=== PATIENT | male | born 1985 | race Caucasian/White ===

== ENCOUNTER 2017-02-09 10:40 | Emergency (ER) | payer SELFPAY ==
[2017-02-09] MEDS ORDERED: HYDROCODONE/ACETAMINOPHEN 5-325 MG TABLET PO ONE (12:33)
--- NOTE | 2017-02-09 12:34 | ER Document Report ---
ED General - General Chief Complaint: Rib Pain Stated Complaint: RIB PAIN Time Seen by Provider: 02/09/17 12:13 Mode of Arrival: Ambulatory Information source: Patient Notes: 32-year-old male presents with complaints of left anterior rib pain. Patient notes he was playing on the snow yesterday and fell forward. Patient actually has a video showing his injury. Patient admits to mediate pain consistent anterior chest wall tenderness TRAVEL OUTSIDE OF THE [place] IN LAST 30 DAYS: No - HPI Onset: Yesterday Onset/Duration: Sudden Quality of pain: Achy Severity: Mild Pain Level: 1 Associated symptoms: Body/muscle aches Exacerbated by: Deep breathing Relieved by: Denies Similar symptoms previously: No Recently seen / treated by doctor: No - Related Data Allergies/Adverse Reactions: No Known Allergies Allergy (Verified 02/09/17 10:46) Past Medical History - Social History Smoking Status: Current Every Day Smoker Cigarette use (# per day): Yes Chew tobacco use (# tins/day): No Smoking Education Provided: No Frequency of alcohol use: Occasional Drug Abuse: Marijuana Family History: Reviewed & Not Pertinent Patient has suicidal ideation: No Patient has homicidal ideation: No Pulmonary Medical History: Reports: Hx Bronchitis Renal/ Medical History: Denies: Hx Peritoneal Dialysis Past Surgical History: Reports: Hx Myringotomy - Pediatric - Immunizations Hx Diphtheria, Pertussis, Tetanus Vaccination: Yes - UTD Review of Systems - Review of Systems Notes: REVIEW OF SYSTEMS: CONSTITUTIONAL : Denies fever, chills, or sweats. Denies recent illness. EENT: Denies eye, ear, throat, or mouth pain or symptoms. Denies nasal or sinus congestion or discharge. Denies throat, tongue, or mouth swelling or difficulty swallowing. CARDIOVASCULAR: Denies chest pain. Denies palpitations or racing or irregular heart beat. Denies ankle edema. RESPIRATORY: Denies cough, cold, or chest congestion. Denies shortness of breath, difficulty breathing, or wheezing. GASTROINTESTINAL: Denies abdominal pain or distention. Denies nausea, vomiting , or diarrhea. Denies blood in vomitus, stools, or per rectum. Denies black, tarry stools. Denies constipation. GENITOURINARY: Denies difficulty urinating, painful urination, burning, frequency, blood in urine, or discharge. MUSCULOSKELETAL: D admits anterior rib pain. SKIN: Denies rash, lesions or sores. HEMATOLOGIC : Denies easy bruising or bleeding. LYMPHATIC: Denies swollen, enlarged glands. NEUROLOGICAL: Denies confusion or altered mental status. Denies passing out or loss of consciousness. Denies dizziness or lightheadedness. Denies headache. Denies weakness or paralysis or loss of use of either side. Denies problems with gait or speech. Denies sensory loss, numbness, or tingling. Denies seizures. PSYCHIATRIC: Denies anxiety or stress. Denies depression, suicidal ideation, or homicidal ideation. ALL OTHER SYSTEMS REVIEWED AND NEGATIVE. Dictation was performed using [employer] recognition software PHYSICAL EXAMINATION: GENERAL: Well-appearing, well-nourished and in no acute distress. HEAD: Atraumatic, normocephalic. EYES: Pupils equal round and reactive to light, extraocular movements intact, sclera anicteric, conjunctiva are normal. ENT: Nares patent, oropharynx clear without exudates. Moist mucous membranes. NECK: Normal range of motion, supple without lymphadenopathy LUNGS: Breath sounds clear to auscultation bilaterally and equal. No wheezes rales or rhonchi. Tenderness on palpation of the anterior ribs 4 5 HEART: Regular rate and rhythm without murmurs ABDOMEN: Soft, nontender, nondistended abdomen. No guarding, no rebound. No masses appreciated. Musculoskeletal: Normal range of motion, no pitting or edema. No cyanosis. NEUROLOGICAL: Cranial nerves grossly intact. Normal speech, normal gait. Normal sensory, motor exams PSYCH: Normal mood, normal affect. SKIN: Warm, Dry, normal turgor, no rashes or lesions noted. Physical Exam - Vital signs Vitals: Temp Pulse BP Pulse Ox 98.5 F 73 121/70 99 02/09/17 10:51 02/09/17 10:51 02/09/17 10:51 02/09/17 10:51 Course - Re-evaluation Re-evalutation: 02/09/17 12:34 Patient will be immediately sent for x-ray rib series vital signs otherwise stable 02/09/17 12:52 X-rays consistent with a left fifth anterior rib fracture, this would be consistent with patient's presentation, there is no pneumothorax noted, he will be given an incentive spirometer we have spoken about smoking cessation. Otherwise patient looks well. She will be given pain control Lidoderm patches After performing a Medical Screening Examination, I estimate there is LOW risk for INTRACRANIAL HEMORRHAGE, UNSTABLE SPINE FRACTURE, CENTRAL CORD SYNDROME, CAUDA EQUINA, THORACIC AORTIC DISSECTION, PNEUMOTHORAX, PERFORATED BOWEL, RUPTURED ABDOMINAL AORTIC ANEURYSM, ACUTE TENDON RUPTURE, COMPARTMENT SYNDROME, or OPEN FRACTURE, thus I consider the discharge disposition reasonable. Also, there is no evidence or peritonitis, sepsis, or toxicity. I have reevaluated this patient multiple times and no significant life threatening changes are noted. The patient and I have discussed the diagnosis and risks, and we agree with discharging home to follow-up with their primary doctor with the understanding that symptoms and presentations can change. We also discussed returning to the Emergency Department immediately if new or worsening symptoms occur. We have discussed the symptoms which are most concerning (e.g., bloody stool, fever, changing or worsening pain, vomiting) that necessitate immediate return. - Vital Signs Vital signs: Temp Pulse Resp BP Pulse Ox 98.5 F 73 18 121/70 99 02/09/17 10:51 02/09/17 10:51 02/09/17 12:09 02/09/17 10:51 02/09/17 10:51 - Diagnostic Test Radiology reviewed: Image reviewed, Reports reviewed - report given to the patient Discharge - Discharge Clinical Impression: left anterior 5th rib fracture Condition: Stable Disposition: HOME, SELF-CARE Instructions: Rib Injuries and Fractures ([facility]) Additional Instructions: Follow up with your physician tomorrow for further care or return to the ED IMMEDIATELY if symptoms worsen or new concerns occur. If you cannot afford to follow up with your primary care physician a list of low cost clinics have been provided at the end of your discharge papers as well. Prescriptions: Hydrocodone/Acetaminophen [[place] 5-325 mg Tablet] 1 tab PO Q6 #14 tablet Lidocaine [Lidoderm 5% (700 mg) Transdermal Patch] 1 patch TP DAILY #30 adh..patch
--- NOTE | 2017-02-09 12:47 | RADIOLOGY REPORT (SQ) ---
EXAM DESCRIPTION: RIBS LEFT W/PA CHEST COMPLETED DATE/TIME: 02/09/2017 12:28 pm REASON FOR STUDY: fall injury COMPARISON: Chest x-ray 02/18/2013 TECHNIQUE: Frontal view of the chest and additional views of the left ribs acquired. NUMBER OF VIEWS: Four views LIMITATIONS: None. FINDINGS: FRONTAL CXR: No pneumothorax. No pleural effusion. No atelectasis or infiltrates. RIBS: No displaced rib fracture seen. Minor irregularity is seen of the anterior 5th rib on the left , concerning for nondisplaced fracture. OTHER: No other significant finding. IMPRESSION: Minor irregularity anterior 5th rib on the left concerning for nondisplaced fracture. COMMENT: No pneumothorax. SITE OF TRAUMA/COMPLAINT MARKED/STAMP COMPLETED: No TECHNICAL DOCUMENTATION: JOB ID: [id number] [employer]- All Rights Reserved
[2017-02-09 12:55] VITALS: BP 119/82
== END 2017-02-09 12:57 | disposition home or self-care (01) ==
LOC: ER 10:40
DX: S22.32XA Fracture of one rib, left side, initial encounter for closed fracture (principal); R07.81 Pleurodynia; W19.XXXA Unspecified fall, initial encounter; F17.210 Nicotine dependence, cigarettes, uncomplicated
CPT/HCPCS: 99283

== ENCOUNTER 2017-02-15 16:44 | Emergency (ER) | payer SELFPAY ==
--- NOTE | 2017-02-15 19:52 | ER Document Report ---
ED Medical Screen (RME) - General Chief Complaint: Rib Pain Stated Complaint: RIB PAIN Time Seen by Provider: 02/15/17 19:49 Mode of Arrival: Ambulatory Information source: Patient Notes: 32-year-old male presents to ED for left rib pain. He states he was seen in the emergency room last Sunday and was diagnosed with a left fifth rib fracture. He states he was coughing a lot last night and the whole left side of his chest started hurting much worse today. Patient smokes a half pack a day. He states he was put on [place] for his rib fracture. He states it is too painful for him to take a deep breath at this time. Lungs are diminished bilaterally. I have greeted and performed a rapid initial assessment of this patient. A comprehensive ED assessment and evaluation of the patient, analysis of test results and completion of medical decision making process will be conducted by an additional ED providers. TRAVEL OUTSIDE OF THE [place] IN LAST 30 DAYS: No - Related Data Allergies/Adverse Reactions: No Known Allergies Allergy (Verified 02/15/17 16:44) Past Medical History Pulmonary Medical History: Reports: Hx Bronchitis Renal/ Medical History: Denies: Hx Peritoneal Dialysis Past Surgical History: Reports: Hx Myringotomy - Pediatric - Immunizations Hx Diphtheria, Pertussis, Tetanus Vaccination: Yes - UTD Physical Exam - Vital signs Vitals: Temp Pulse Resp BP Pulse Ox 98.0 F 86 16 126/77 H 96 02/15/17 16:48 02/15/17 16:48 02/15/17 16:48 02/15/17 16:48 02/15/17 16:48 Course - Vital Signs Vital signs: Temp Pulse Resp BP Pulse Ox 98.0 F 86 16 126/77 H 96 02/15/17 16:48 02/15/17 16:48 02/15/17 16:48 02/15/17 16:48 02/15/17 16:48
--- NOTE | 2017-02-15 20:08 | RADIOLOGY REPORT (SQ) ---
EXAM DESCRIPTION: RIBS LEFT W/PA CHEST COMPLETED DATE/TIME: 02/15/2017 8:00 pm REASON FOR STUDY: cough increase in pain states has fx 5th rib COMPARISON: 02/09/2017 TECHNIQUE: Frontal view of the chest and additional views of the left ribs acquired. NUMBER OF VIEWS: Four view. LIMITATIONS: None. FINDINGS: FRONTAL CXR: No pneumothorax. No pleural effusion. No atelectasis or infiltrates. RIBS: Persistent nondisplaced fracture of the 5th lateral left rib. OTHER: No other significant finding. IMPRESSION: No pneumothorax. Persistent fracture of the left 5th rib without change. COMMENT: SITE OF TRAUMA/COMPLAINT MARKED/STAMP COMPLETED: Yes TECHNICAL DOCUMENTATION: JOB ID: [id number] [employer]- All Rights Reserved
--- NOTE | 2017-02-15 22:35 | ER Document Report ---
ED General - General Mode of Arrival: Ambulatory Information source: Patient TRAVEL OUTSIDE OF THE [place] IN LAST 30 DAYS: No - General Chief Complaint: Rib Pain Stated Complaint: RIB PAIN Time Seen by Provider: 02/15/17 19:49 Notes: Patient is a 32-year-old male who presents to the emergency department today with complaints of left-sided chest wall pain. Patient fell recently on ice and was diagnosed with a rib fracture. Patient states since being diagnosed with this he has developed a cough and nasal congestion. Patient states he is here for the cough and also needing some pain relief. (ESTEFANI GODWIN) - Related Data Allergies/Adverse Reactions: No Known Allergies Allergy (Verified 02/15/17 16:44) Past Medical History - General Information source: Patient - Social History Smoking Status: Current Every Day Smoker Cigarette use (# per day): Yes Frequency of alcohol use: None Drug Abuse: None Lives with: Family Family History: Reviewed & Not Pertinent Patient has suicidal ideation: No Patient has homicidal ideation: No Pulmonary Medical History: Reports: Hx Bronchitis Past Surgical History: Reports: Hx Myringotomy - Pediatric - Immunizations Hx Diphtheria, Pertussis, Tetanus Vaccination: Yes - UTD Review of Systems - Review of Systems Constitutional: No symptoms reported EENT: See HPI, Nose congestion Cardiovascular: No symptoms reported Respiratory: See HPI, Cough, Other - Rib pain, recent fracture Gastrointestinal: No symptoms reported Genitourinary: No symptoms reported Male Genitourinary: No symptoms reported Musculoskeletal: No symptoms reported Skin: No symptoms reported Hematologic/Lymphatic: No symptoms reported Neurological/Psychological: No symptoms reported -: Yes All other systems reviewed and negative Physical Exam - Vital signs Vitals: Temp Pulse Resp BP Pulse Ox 98.0 F 86 16 126/77 H 96 02/15/17 16:48 02/15/17 16:48 02/15/17 16:48 02/15/17 16:48 02/15/17 16:48 - Notes Notes: Physical Exam: General: Alert, appears well. HEENT: Normocephalic. Atraumatic. PERRL. Extraocular movements intact. Oropharynx clear. Neck: Supple. Non-tender. Respiratory: No respiratory distress. Clear and equal breath sounds bilaterally , no wheezing, rales, or rhonchi. Left lateral chest wall tenderness to palpation. Cardiovascular: Regular rate and rhythm. Abdominal: Obese. Non-tender. No distension. Normal Bowel Sounds. Back: No deformity or step off. Trapezius and scapular musculature tenderness to the patient Extremities: Moves all four extremities. Upper extremities: Normal inspection. Normal ROM. Lower extremities: Normal inspection. No edema. Normal ROM. Neurological: Normal cognition. AAOx4. Normal speech. Psychological: Normal affect. Normal Mood. Skin: Warm. Dry. Normal color. (ESTEFANI GODWIN) Course - Re-evaluation Re-evalutation: 02/15 Patient is a 32-year-old male with recent rib fracture who comes in complaining of pain. Patient has been splinting due to pain. He is out of pain medication. Reproducible tenderness to palpation. No evidence for pneumonia but patient is developing a cough. Will be started on azithromycin and given medication for pain control. Stable for discharge. Return if any worsening or concerning symptoms. Continue to use incentive spirometer at home. (JACOBO SERNA) - Vital Signs Vital signs: Temp Pulse Resp BP Pulse Ox 98.6 F 74 16 130/88 H 96 02/15/17 23:55 02/15/17 23:55 02/15/17 19:50 02/15/17 23:55 02/15/17 23:55 Discharge - Discharge Clinical Impression: Chest wall pain, Cough Rib fracture Qualifiers: Encounter type: initial encounter Rib fracture type: single rib Fracture type: closed Laterality: left Qualified Code(s): S22.32XA - Fracture of one rib, left side, initial encounter for closed fracture Condition: Stable Disposition: HOME, SELF-CARE Instructions: Chest Wall Pain ([facility]), Rib Injuries and Fractures ([facility]) Prescriptions: Azithromycin [Zithromax 250 mg Tablet] 250 mg PO ASDIR PRN #6 tablet PRN Reason: Carisoprodol [Soma] 350 mg PO BIDP PRN #10 tablet PRN Reason: Oxycodone HCl/Acetaminophen [Percocet 5-325 mg Tablet] 1 - 2 tab PO Q4H PRN #15 tablet PRN Reason: Forms: Return to Work Scribe Attestation: 02/16/17 03:52 I personally performed the services described in the documentation, reviewed and edited the documentation which was dictated to the scribe in my presence, and it accurately records my words and actions. (JACOBO SERNA) Scribe Documentation - Scribe Written by Scribe:: Lanny Tan, 02/16/2017 0106 acting as scribe for :: Iris
[2017-02-15] MEDS ORDERED: CARISOPRODOL 350 MG TABLET PO ONE (23:00)
[2017-02-15] MEDS ORDERED: LIDOCAINE 5% (700 MG) TRANSDERMAL ADH..PATCH TP ONE (23:00)
[2017-02-15] MEDS ORDERED: KETOROLAC TROMETHAMINE 60 MG/2 ML SDV IM ONE (23:00)
[2017-02-15] MEDS ORDERED: AZITHROMYCIN 250 MG TABLET PO ONE (23:00)
[2017-02-15] MEDS ORDERED: HYDROCODONE/ACETAMINOPHEN 5-325 MG (6 TAB/ER DISP) PO PRN (23:37)
[2017-02-15 23:56] VITALS: BP 130/88
== END 2017-02-15 23:56 | disposition home or self-care (01) ==
LOC: ER 16:44
DX: R07.81 Pleurodynia (principal); R05 Cough; R09.81 Nasal congestion; S22.32XA Fracture of one rib, left side, initial encounter for closed fracture; X58.XXXA Exposure to other specified factors, initial encounter; F17.210 Nicotine dependence, cigarettes, uncomplicated
CPT/HCPCS: 99283; 96372; 71101; J3490; J1885

== ENCOUNTER 2017-05-27 16:37 | Emergency (ER) | payer BC ==
[2017-05-27 16:43] VITALS: BP 110/67
[2017-05-27] MEDS ORDERED: FENTANYL CITRATE INJ/PF 100 MCG/2 ML AMPUL IV ONE (17:27)
[2017-05-27] MEDS ORDERED: ONDANSETRON 4 MG TAB.RAPDIS PO ONE (17:27)
--- NOTE | 2017-05-27 17:29 | ER Document Report ---
ED Medical Screen (RME) - General Chief Complaint: Flank Pain Stated Complaint: LOWER BACK PAIN Time Seen by Provider: 05/27/17 17:22 Notes: RME DISCLOSURE I have seen this patient as part of a Rapid Medical Evaluation and, if applicable, placed any initially appropriate orders. The patient will be seen and fully evaluated, including a full history and physical exam, by a provider ( in Main ED or Fast Track) when a room becomes available. 32-year-old male here with complaints of left-sided back flank pain radiating forward to the abdomen as well as difficulty urinating that started earlier today. He is still able to urinate however he is not able to excrete the volume he normally does. He has no dysuria or hematuria. He has some nausea but no vomiting or diarrhea. He has not tried taking anything for the symptoms. He has no prior history of kidney stones. TRAVEL OUTSIDE OF THE [place] IN LAST 30 DAYS: No - Related Data Allergies/Adverse Reactions: No Known Allergies Allergy (Verified 05/27/17 16:38) Past Medical History - Social History Chew tobacco use (# tins/day): No Frequency of alcohol use: Rare Drug Abuse: Marijuana Pulmonary Medical History: Reports: Hx Bronchitis Renal/ Medical History: Denies: Hx Peritoneal Dialysis Past Surgical History: Reports: Hx Myringotomy - Pediatric, Hx Tonsillectomy - Immunizations Hx Diphtheria, Pertussis, Tetanus Vaccination: Yes - UTD Physical Exam - Vital signs Vitals: Temp Pulse Resp BP Pulse Ox 97.6 F 64 20 110/67 99 05/27/17 16:42 05/27/17 16:42 05/27/17 16:42 05/27/17 16:42 05/27/17 16:42 Course - Vital Signs Vital signs: Temp Pulse Resp BP Pulse Ox 97.6 F 64 20 110/67 99 05/27/17 16:42 05/27/17 16:42 05/27/17 16:42 05/27/17 16:42 05/27/17 16:42
[2017-05-27 18:08] LABS: ABSOLUTE BASOPHILS # (AUTO) 0.1 10^3/uL (0.0-0.2); ABSOLUTE EOSINOPHILS # (AUTO) 0.2 10^3/uL (0.0-0.6); ABSOLUTE LYMPHOCYTES (AUTO) 2.2 10^3/uL (0.5-4.7); ABSOLUTE MONOCYTES (AUTO) 0.7 10^3/uL (0.1-1.4); ABSOLUTE NEUT (AUTO) 6.9 10^3/uL (1.7-8.2); BASOPHILS % (AUTO) 0.7 % (0-2); EOSINOPHILS % (AUTO) 1.8 % (0-6); HEMATOCRIT 47.5 % (37.9-51.0); HEMOGLOBIN 16.1 g/dL (13.5-17.0); LYMPHOCYTES % (AUTO) 21.6 % (13-45); MEAN CORPUSCULAR HEMOGLOBIN 29.4 pg (27.0-33.4); MEAN CORPUSCULAR HGB CONC 33.9 g/dL (32.0-36.0); MEAN CORPUSCULAR VOLUME 87 fl (80-97); MONOCYTES % (AUTO) 7.2 % (3-13); PLATELET COUNT 234 10^3/uL (150-450); RED BLOOD COUNT 5.46 10^6/uL (4.35-5.55); SEGMENTED NEUTROPHILS % (AUTO) 68.7 % (42-78); TOTAL CELLS COUNTED % (AUTO) 100 %; WHITE BLOOD COUNT 10.1 10^3/uL (4.0-10.5)
[2017-05-27 18:15] LABS: AMORPHOUS SEDIMENT,URINE TRACE /HPF; APPEARANCE,URINE SLIGHTLY-CLOUDY; BILIRUBIN,URINE NEGATIVE (NEGATIVE); COLOR,URINE YELLOW; GLUCOSE, URINE NEGATIVE (NEGATIVE); KETONES,URINE NEGATIVE (NEGATIVE); LEUKOCYTE ESTERASE,URINE NEGATIVE (NEGATIVE); NITRITE,URINE NEGATIVE (NEGATIVE); PROTEIN,URINE 30 mg/dL (NEGATIVE); URINE SPECIFIC GRAVITY 1.026
[2017-05-27 18:31] LABS: ALANINE AMINOTRANSFERASE 68 U/L (21-72); ALBUMIN 4.7 g/dL (3.5-5.0); ALKALINE PHOSPHATASE 69 U/L (38-126); ANION GAP 11 (5-19); ASPARTATE AMINO TRANSFERASE 35 U/L (17-59); BILIRUBIN,DIRECT 0.3 mg/dL (0.0-0.4); BILIRUBIN,TOTAL 0.5 mg/dL (0.2-1.3); BLOOD UREA NITROGEN 14 mg/dL (7-20); CALCIUM 10.3 mg/dL (8.4-10.2); CARBON DIOXIDE 30 mmol/L (22-30); CHLORIDE 104 mmol/L (98-107); GLUCOSE 90 mg/dL (75-110); POTASSIUM 4.5 mmol/L (3.6-5.0); SODIUM 145.2 mmol/L (137-145); TOTAL PROTEIN 7.2 g/dL (6.3-8.2)
--- NOTE | 2017-05-27 18:31 | RADIOLOGY REPORT (SQ) ---
EXAM DESCRIPTION: CT LTD RENAL STONE PROTOCOL ON COMPLETED DATE/TIME: 05/27/2017 6:10 pm REASON FOR STUDY: L back flank and abd pain; eval stone COMPARISON: None. TECHNIQUE: CT scan of the abdomen and pelvis performed without intravenous or oral contrast. Images reviewed with lung, soft tissue, and bone windows. Reconstructed coronal and sagittal MPR images revi ewed. All images stored on PACS. All CT scanners at this facility use dose modulation, iterative reconstruction, and/or weight based d osing when appropriate to reduce radiation dose to as low as reasonably achievable (ALARA). [facility]: Dose Right [facility]: CareDose [facility]: Dose Right [facility]: Teradose 4D [facility]: Smart [place] RADIATION DOSE: CT Rad equipment meets quality standard of care and radiation dose reduction techniq ues were employed. CTDIvol: 18.2 mGy. DLP: 1085 mGy-cm.mGy. LIMITATIONS: None. FINDINGS: LOWER CHEST: No significant findings. No nodules or infiltrates. NON-CONTRASTED LIVER, SPLEEN, ADRENALS: Evaluation limited by lack of IV contrast. No identified sign ificant masses. PANCREAS: No masses. No peripancreatic inflammatory changes. GALLBLADDER: No identified stones by CT criteria. No inflammatory changes to suggest cholecystitis. RIGHT KIDNEY AND URETER: No suspicious masses. Assessment limited by lack of IV contrast. No signif icant calcifications. No hydronephrosis or hydroureter. LEFT KIDNEY AND URETER: No suspicious masses. Assessment limited by lack of IV contrast. 2 mm calci fied stone at the left UVJ with mild hydronephrosis - hydroureter. Additional 3 mm calcified stone i n a lower pole calyx. AORTA AND RETROPERITONEUM: No aneurysm. No retroperitoneal masses or adenopathy. BOWEL AND PERITONEAL CAVITY: No obvious masses or inflammatory changes. No free fluid. APPENDIX: Normal. PELVIS, BLADDER, AND ABDOMINAL WALL:No abnormal masses. No free fluid. Bladder normal. BONES: No significant findings. OTHER: No other significant finding. IMPRESSION: 2 mm calcified stone at the left UVJ with mild hydronephrosis - hydroureter. COMMENT: Quality ID # [id number]: Final reports with documentation of one or more dose reduction techniques (e.g., Automated exposure control, adjustment of the mA and/or kV according to patient size, use of iterative reconstruction technique) TECHNICAL DOCUMENTATION: JOB ID: [id number] [place]-72 2010 [employer]- All Rights Reserved Reading location - IP/workstation name: [email or web address]
[2017-05-27] MEDS ORDERED: NORMAL SALINE 1000 ML 1,000 ML IV ONE (19:03)
[2017-05-27] MEDS ORDERED: KETOROLAC TROMETHAMINE INJ/PF 30 MG/1 ML SDV IV ONE (19:04)
[2017-05-27] MEDS ORDERED: TAMSULOSIN HCL 0.4 MG CAP.SR.24H PO ONE (19:04)
--- NOTE | 2017-05-27 19:05 | ER Document Report ---
ED GI/ - General Chief Complaint: Flank Pain Stated Complaint: LOWER BACK PAIN Time Seen by Provider: 05/27/17 17:22 Mode of Arrival: Ambulatory Information source: Patient Notes: 32-year-old male presents to ED for complaint of left-sided flank pain radiating to the abdomen. States he had some difficulty urinating earlier today but is able to carry urinate with no problems now. He states he did not see any blood in his urine but he has had some nausea with no vomiting. TRAVEL OUTSIDE OF THE [place] IN LAST 30 DAYS: No - HPI Patient complains to provider of: Flank pain Onset: This morning Timing/Duration: Intermittent Quality of pain: Cramping, Dull Severity at maximum: Severe Severity in ED: Moderate Pain Level: 2 Location: Left flank Associated symptoms: Nausea, Other - Flank pain. denies: Vomiting Exacerbated by: Denies Relieved by: Denies Similar symptoms previously: No Recently seen / treated by doctor: No - Related Data Allergies/Adverse Reactions: No Known Allergies Allergy (Verified 05/27/17 16:38) Past Medical History - General Information source: Patient - Social History Smoking Status: Current Every Day Smoker Cigarette use (# per day): Yes - 1/2 ppd Chew tobacco use (# tins/day): No Smoking Education Provided: Yes - 4 min Frequency of alcohol use: Rare Drug Abuse: Marijuana Occupation: [employer] Family History: Reviewed & Not Pertinent Patient has suicidal ideation: No Patient has homicidal ideation: No - Past Medical History Cardiac Medical History: Reports: None Pulmonary Medical History: Reports: Hx Bronchitis EENT Medical History: Reports: None Neurological Medical History: Reports: None Endocrine Medical History: Reports: None Renal/ Medical History: Reports: Hx Kidney Stones Malignancy Medical History: Reports None GI Medical History: Reports: None Musculoskeltal Medical History: Reports Hx Musculoskeletal Trauma Skin Medical History: Reports None Psychiatric Medical History: Reports: None Traumatic Medical History: Reports: Hx Fractures - rib Infectious Medical History: Reports: None Past Surgical History: Reports: Hx Myringotomy - Pediatric 6 ear surgeries, Hx Tonsillectomy - Immunizations Hx Diphtheria, Pertussis, Tetanus Vaccination: Yes - UTD Review of Systems - Review of Systems Constitutional: No symptoms reported EENT: No symptoms reported Cardiovascular: No symptoms reported Respiratory: No symptoms reported Gastrointestinal: Nausea Genitourinary: Flank pain Male Genitourinary: No symptoms reported Musculoskeletal: No symptoms reported Skin: No symptoms reported Hematologic/Lymphatic: No symptoms reported Neurological/Psychological: No symptoms reported -: Yes All other systems reviewed and negative Physical Exam - Vital signs Vitals: Temp Pulse Resp BP Pulse Ox 97.6 F 64 20 110/67 99 05/27/17 16:42 05/27/17 16:42 05/27/17 16:42 05/27/17 16:42 05/27/17 16:42 Interpretation: Normal - General General appearance: Appears well, Alert - HEENT Head: Normocephalic, Atraumatic Eyes: Normal Pupils: PERRL - Respiratory Respiratory status: No respiratory distress Chest status: Nontender Breath sounds: Normal Chest palpation: Normal - Cardiovascular Rhythm: Regular Heart sounds: Normal auscultation Murmur: No - Abdominal Inspection: Normal Distension: No distension Bowel sounds: Normal Tenderness: Tender - Left flank pain Organomegaly: No organomegaly - Back Back: Normal, CVA tenderness - Left - Extremities General upper extremity: Normal inspection, Nontender, Normal color, Normal ROM , Normal temperature General lower extremity: Normal inspection, Nontender, Normal color, Normal ROM , Normal temperature, Normal weight bearing. No: Elian's sign - Neurological Neuro grossly intact: Yes Cognition: Normal Orientation: AAOx4 [place] Coma Scale Eye Opening: Spontaneous [place] Coma Scale Verbal: Oriented [place] Coma Scale Motor: Obeys Commands [place] Coma Scale Total: 15 Speech: Normal Motor strength normal: LUE, RUE, LLE, RLE Sensory: Normal - Psychological Associated symptoms: Normal affect, Normal mood - Skin Skin Temperature: Warm Skin Moisture: Dry Skin Color: Normal Course - Re-evaluation Re-evalutation: 05/27/17 19:22 Patient was treated with Zofran, fentanyl, Toradol, Flomax, and IV fluids for his 2 mm UVJ stone on the left. Patient will be discharged home with prescription for Flomax and a urine strainer. Patient to follow-up with urology and primary md - Vital Signs Vital signs: Temp Pulse Resp BP Pulse Ox 97.6 F 64 20 110/67 99 05/27/17 16:42 05/27/17 16:42 05/27/17 16:42 05/27/17 16:42 05/27/17 16:42 - Laboratory Result Diagrams: 05/27/17 17:45 05/27/17 17:45 Laboratory results interpreted by me: 05/27/17 05/27/17 17:45 17:45 Sodium 145.2 H Calcium 10.3 H Urine Protein 30 H Urine Blood LARGE H Urine Urobilinogen 2.0 H - Diagnostic Test Radiology reviewed: Image reviewed, Reports reviewed Discharge - Discharge Clinical Impression: Ureterolithiasis Condition: Stable Disposition: HOME, SELF-CARE Instructions: Family Physicians / Practices Additional Instructions: KIDNEY STONE: You are passing or have passed a kidney stone. These stones are usually due to increased calcium or uric acid concentrations in your urine. Stones within the kidney itself are not painful. The pain occurs as the stone leaves the kidney to pass down the long tube, called the ureter, leading to the bladder. If the stone is small, it will usually pass by itself. Most patients can pass the stone at home. You will usually receive medications for pain, nausea or vomiting, and sometimes a medication to assist in passing the kidney stone. However, if the pain is very severe or if vomiting prevents you from taking oral pain medications, you may need to return for further treatment. Drink three or four quarts of fluids per day. You will be given pain medication (if needed) and urine strainers. Strain all your urine to see if the stone passes. If your doctor has asked you to bring the stone in for analysis, return with the stone once it has passed. Return if pain or vomiting become severe, if you develop a high fever, if you are unable to pass your urine, or if other unusual symptoms occur. TORADOL INJECTION: You have been given an injection of ketorolac tromethamine (Toradol). This is an excellent, safe drug for pain control. It also has potent antiinflammatory action. You should have significant pain relief within about one hour. Toradol is not addicting and is non-sedating. It does not interfere with driving or work. Call or return if you develop itching, hives, shortness of breath, or rash. PAIN MEDICATION INJECTION: You have received an injection of a pain medication. You should experience significant pain relief within 45 minutes. This drug is a narcotic - - it will impair your judgement, slow your reaction time and make you sleepy ( as well as relieve your pain). Narcotics also can cause nausea. You should not drive, work with machinery, or perform any task requiring mental alertness until all effects of the medication are gone -- six to eight hours. Do not take any alcohol, or sedatives, and do not take any other medication without checking with your physician. AN[place] MEDICATION: You have been given a medication to suppress nausea and vomiting. This type of medication can be given as a shot, pill, or suppository. It will usually last for many hours. Pills and shots usually last six to eight hours, suppositories last about 12 hours. For the typical illness, only one or two doses of the medication may be necessary. Mild lightheadedness may occur. This type of medicine can cause drowsiness. Do not drive or operate dangerous machinery while under its influence. Do not mix with alcohol. See your doctor at once if you have muscle spasms or tightness, or uncontrollable motions (particularly of the neck, mouth, or jaw). Persistent vomiting or severe lightheadedness should also be evaluated by the physician. FLOMAX (tamsulosin): Flomax is a medicine that shrinks the prostate gland. It helps relieve symptoms of benign prostatic hypertrophy, such as frequent urination, weak stream, and inadequate emptying. It has been shown to dilate the ureter (tube leading from the kidney to the bladder) and help in passing kidney stones Flomax usually causes no side effects. You may notice slight tiredness and dizziness for a few days. Some patients develop nasal congestion. Rarely, impotence can occur. If the symptoms are bothersome and don't improve with continued use, call your doctor. Contact your doctor or return if you have fainting spells, severe weakness or dizziness, shortness of breath, or rash. FOLLOW-UP CARE: If you have been referred to a physician for follow-up care, call the physician s office for an appointment as you were instructed or within the next two days. If you experience worsening or a significant change in your symptoms, notify the physician immediately or return to the Emergency Department at any time for re-evaluation. Prescriptions: Ondansetron [Zofran Odt 4 mg Tablet] 4 mg PO Q6HP PRN #14 tab.rapdis PRN Reason: Oxycodone HCl/Acetaminophen [Percocet 5-325 mg Tablet] 1 tab PO Q6HP PRN #10 tablet PRN Reason: For Pain Scale 3-5 Ibuprofen [Motrin 800 mg Tablet] 800 mg PO Q8H PRN #20 tab PRN Reason: Tamsulosin HCl [Flomax] 0.4 mg PO DAILY #7 cap.er.24h Forms: Smoking Cessation Education, Return to Work Referrals: EZRA GAN II, MD [ANURAG URBINA] - Follow up as needed
== END 2017-05-27 20:00 | disposition home or self-care (01) ==
LOC: ER 16:37
DX: N13.2 Hydronephrosis with renal and ureteral calculous obstruction (principal); R11.0 Nausea; R10.9 Unspecified abdominal pain; F17.210 Nicotine dependence, cigarettes, uncomplicated; Z71.6 Tobacco abuse counseling
CPT/HCPCS: 99284; 96374; 36415; 83690; 85025; 80053; 81001; 76380; S0119; J3010; J1885; J7030

== ENCOUNTER 2018-06-26 15:29 | Emergency (ER) | payer BC ==
[2018-06-26 18:59] LABS: A TYPE INFLUENZA AG NEGATIVE (NEGATIVE); B INFLUENZA AG NEGATIVE (NEGATIVE)
--- NOTE | 2018-06-26 19:55 | ER Document Report ---
ED Respiratory Problem - General Chief Complaint: Pain All Over Stated Complaint: FLU SYMPTOMS Time Seen by Provider: 06/26/18 18:51 Mode of Arrival: Ambulatory Information source: Patient Notes: Patient is a 33-year-old male comes emergency room with complaint of cough congestion runny nose chills. Patient states that his daughter was diagnosed with the flu 2 days ago and put on Tamiflu. His is also proximally 20 weeks and is here because he does not want to get her infected. Patient states he has been chilled but has had no measured temperature. He aches all over his body and feels like he is got the same thing it started as. 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 He has been taking Mucinex [id number] without any relief of his symptoms. Patient states his symptoms started 24 hours ago. TRAVEL OUTSIDE OF THE [place] IN LAST 30 DAYS: No - HPI Patient complains to provider of: Cough Onset: Yesterday Duration: Continuous, Worse/persistent Initiating Event: URI Quality of pain: Achy Severity: Moderate Pain Level: 3 Context: Smoker Short of Breath: Moderate Cough: Productive Sputum amount: Moderate Sputum color: Green Sputum consistency: Thick Associated symptoms: Chills, Congestion, Cough, Earache, Facial pain, Runny nose, Sinus pain/pressure, Short of breath, Sore Throat Similar symptoms previously: Yes Recently seen / treated by doctor: No - Related Data Allergies/Adverse Reactions: No Known Allergies Allergy (Verified 06/26/18 15:30) Past Medical History - General Information source: Patient - Social History Smoking Status: Current Every Day Smoker Cigarette use (# per day): Yes - Half-pack a day Chew tobacco use (# tins/day): No Smoking Education Provided: Yes Frequency of alcohol use: None Drug Abuse: None Family History: Reviewed & Not Pertinent Patient has suicidal ideation: No Patient has homicidal ideation: No Pulmonary Medical History: Reports: Hx Bronchitis Renal/ Medical History: Reports: Hx Kidney Stones. Denies: Hx Peritoneal Dialysis Musculoskeletal Medical History: Reports Hx Musculoskeletal Trauma Traumatic Medical History: Reports: Hx Fractures - rib Past Surgical History: Reports: Hx Myringotomy - Pediatric 6 ear surgeries, Hx Tonsillectomy - Immunizations Hx Diphtheria, Pertussis, Tetanus Vaccination: Yes - UTD Review of Systems - Review of Systems Constitutional: No symptoms reported EENT: See HPI, Nose congestion, Nose discharge, Sinus pressure, Sinus discharge, Throat pain Cardiovascular: No symptoms reported Respiratory: See HPI, Cough, Short of breath, Sputum Gastrointestinal: No symptoms reported Genitourinary: No symptoms reported Male Genitourinary: No symptoms reported Musculoskeletal: No symptoms reported Skin: No symptoms reported Hematologic/Lymphatic: No symptoms reported Neurological/Psychological: No symptoms reported -: Yes All other systems reviewed and negative Physical Exam - Vital signs Vitals: Temp Pulse Resp BP Pulse Ox 98 F 75 18 130/75 H 97 06/26/18 15:34 06/26/18 15:34 06/26/18 15:34 06/26/18 15:34 06/26/18 15:34 Interpretation: Hypertensive - Notes Notes: PHYSICAL EXAMINATION: GENERAL: patient is well-nourished well-developed 33-year-old male who is in no apparent distress on physical exam today however he does appear to be slightly ill-appearing with a little paleness to the skin. HEAD: Atraumatic, normocephalic. EYES: Pupils equal round and reactive to light, extraocular movements intact, sclera anicteric, conjunctiva are normal. ENT: Head and upper airway showed nasal mucosa to be very erythematous and edematous with some rhinorrhea elevation green in color. Also noted patient bilateral nasal congestion. Examination of the ears shows the left ear to be clear on the external canal without any cerumen and the TM bulging with air- fluid levels noted. Right ear is somewhat cerumen filled but not impacted you can in the distance see the TM that appears to be bulging but I cannot tell if there is any fluid levels. Further examination of the oropharynx shows that he has moderate amount of drainage in the posterior pharynx with greenish type of a drainage. It appears also be very thick. Uvula is midline tonsils are absent and there is no encroachment upon the uvula at this time there is moderate amount of erythema throughout the posterior pharynx noted. NECK: Normal range of motion, supple without lymphadenopathy LUNGS: Breath sounds clear to auscultation bilaterally and equal. No wheezes rales or rhonchi. HEART: Regular rate and rhythm without murmurs NEUROLOGICAL: Normal speech, normal gait. Normal sensory, motor exams PSYCH: Normal mood, normal affect. SKIN: Warm, Dry, normal turgor, no rashes or lesions noted. Course - Re-evaluation Re-evalutation: 06/26/18 19:55 Given patient's history of recent diagnosis of a confirmed influenza by his daughter 2 days ago he is requested that we put him on Tamiflu prophylaxis as well. I do not see any need to run a influenza test on him at this time I believe most of his symptoms are upper respiratory without any major fever I doubt that we would get a positive reaction anyway at this time. He does have documentation of his daughter having influenza. - Vital Signs Vital signs: Temp Pulse Resp BP Pulse Ox 98 F 75 18 130/75 H 97 06/26/18 15:34 06/26/18 15:34 06/26/18 15:34 06/26/18 15:34 06/26/18 15:34 Discharge - Discharge Clinical Impression: Exposure to influenza Upper respiratory infection Qualifiers: URI type: unspecified URI Qualified Code(s): J06.9 - Acute upper respiratory infection, unspecified Condition: Stable Disposition: HOME, SELF-CARE Instructions: Viral Syndrome ([facility]), Upper Respiratory Illness ([facility]) Additional Instructions: As we discussed home and rest. Tylenol alternate with Motrin every 4 hours to keep the fever down and aches and pains at bay. Use nasal saline 3-4 times a day to keep the nose moist and secretions thin. I have written you for a nasal steroid this will help reduce the inflammation in your nasal sinuses. At this point I do not believe you need an antibiotic. We are also treating you prophylactically for influenza since her daughter has a known exposure to it and has a known active virus from it. Push fluids but avoid milk and dairy for the next 48 hours since this causes increased secretions. Should you have any concerns or problems and return to ER for recheck. Prescriptions: Fluticasone Propionate [Flonase Nasal [place] 50 Mcg/[place] 16 gm] 1 spray NASL Q12 #1 inhaler Oseltamivir Phosphate [Tamiflu 75 mg Capsule] 75 mg PO NOW 10 Days #10 capsule Pseudoephedrine HCl [Sudafed 12 Hour] 120 mg PO BID #20 tablet.er Forms: Elevated Blood Pressure, Smoking Cessation Education, Return to Work
[2018-06-26 20:34] VITALS: BP 111/66
== END 2018-06-26 20:34 | disposition home or self-care (01) ==
LOC: ER 15:29
DX: J06.9 Acute upper respiratory infection, unspecified (principal); R05 Cough; R09.81 Nasal congestion; R09.89 Other specified symptoms and signs involving the circulatory and respiratory systems; F17.210 Nicotine dependence, cigarettes, uncomplicated
CPT/HCPCS: 87804; 99283